=== PATIENT | female | born 1980 | race Caucasian/White ===

== ENCOUNTER 2020-07-18 18:30 | Emergency (ER) | payer OTHER ==
--- NOTE | 2020-07-18 19:23 | EDM.PDOC ---
ED HPI GENERAL MEDICAL PROBLEM - General Chief Complaint: Lower Extremity Injury/Pain Stated Complaint: RT LEG INJURY Time Seen by Provider: 07/18/20 19:06 - History of Present Illness INITIAL COMMENTS - FREE TEXT/NARRATIVE: HISTORY AND PHYSICAL: History of present illness: This is a 40-year-old female who presents ER today with complaint of sudden severe acute pain to her right posterior calf that felt like someone shot her in the back of her calf that occurred earlier today when she was taking a step down with weight on her right affected foot. Patient reports while she was stepping down she felt severe pain to the right calf. Patient reports 2 days ago she felt an ache to that area and today she felt a severe sharp snapping or bandlike pain. Patient reports severe pain with dorsiflexion of her foot. Patient rep orts that she works for [employer] and was having an extremely difficult time driving and had to use her left foot to drive. Patient has any hypertension, diabetes, liver, lung, kidney problems. Patient has any history of DVT/PE. Patient has any tobacco alcohol or drugs. Patient has no known drug allergies. Review of systems: As per history of present illness and below otherwise all systems reviewed and negative. Past medical history: As per history of present illness and as reviewed below otherwise noncontributory. Surgical history: As per history of present illness and as reviewed below otherwise noncontributory. Social history: No reported history of drug or alcohol abuse. Family history: As per history of present illness and as reviewed below otherwise noncontributory. Physical exam: Constitutional: Patient is oriented to person, place, and time. Appears well- developed and well-nourished. No distress. HEENT: Moist mucous membranes Head: Normocephalic and atraumatic Eyes: Right eye exhibits no discharge. Left eye exhibits no discharge. No scleral icterus Neck: Normal range of motion. No tracheal deviation present. Cardiovascular: Normal rate and regular rhythm. Pulmonary: Effort normal, no respiratory distress. Abdominal: No distention Musculoskeletal: Normal range of motion Neurologic: Alert and oriented to person, place and time. Skin: [place], warm and dry. Psychiatric: Normal mood and affect. Behavior is normal. Judgment and thought content normal. Nursing note and vital signs have been reviewed Patient's ER physical exam is significant for tenderness to palpation to her posterior calf. There is no edema identified but there is a slight amount of bruising noted to her posterior calf. Patient has severe pain with dorsiflexion and resolution of pain with plantarflexion of her right foot. Patient is neurovascular intact. Patient has good capillary refill and bounding DP/PT pulses. Assessment and plan: 40-year-old female with a likely tear of the calf muscle. Patient's exam and history is not consistent with a DVT. Patient exam and history is not consistent with an acute vascular occlusion. Patient be discharged home with ibuprofen, rest, ice, heat and instructions follow-up with orthopedics. Patient will be provided for crutches. DME note: Crutches are being ordered for patient to utilize secondary to likely calf muscl e tear. Patient should utilize the crutches for 1 week in order to avoid weightbearing and assist with calf muscle healing. Reassessment at the time of disposition demonstrates that the patient is in no acute distress. The patient has remained stable throughout the entire ED visit and is without objective evidence for acute process requiring urgent intervention or hospitalization. The patient is stable for discharge, counseling is provided as documented above, discussed symptomatic treatment and specific conditions for return. I have spoken with the patient/caregiver and discussed todays findings, in addition to providing specific details for the plan of care. Questions are answered and there is agreement with the plan. Definitive disposition and diagnosis as appropriate pending reevaluation and review of above. 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: Other CLINICAL OPERATIONS CONSULTANT History: tubal ligation - Past Surgical History Other HEENT Surgeries/Procedures: dental caries Female Surgical History: Reports: Hysterectomy Social & Family History - Family History Family Medical History: Noncontributory - Tobacco Use Tobacco Use Status *Q: Never Tobacco User - Recreational Drug Use Recreational Drug Use: No Review of Systems - Review of Systems Review Of Systems: See Below ED EXAM, GENERAL - Physical Exam Exam: See Below Course - Vital Signs Last Recorded V/S: Last Vital Signs Temp 97.5 F 07/18/20 18:50 Pulse 78 07/18/20 18:50 Resp 14 07/18/20 18:50 BP 140/93 H 07/18/20 18:50 Pulse Ox 97 07/18/20 18:50 - Orders/Labs/Meds Orders: Active Orders 24 hr Category Date Time Status DME for Discharge [COMM] Stat Oth 07/18/20 19:30 Ordered Departure - Departure Time of Disposition: 19:17 Disposition: Home, Self-Care 01 Clinical Impression: Gastrocnemius muscle tear - Discharge Information Prescriptions: Ibuprofen 600 mg PO Q6HR PRN #30 tablet PRN Reason: Pain Instructions: Medial Head Gastrocnemius Tear Rehab-SportsMed, Medial Head Gastrocnemius Tear Referrals: PCP,Not In Area [Primary Care Provider] - Forms: ED Department Discharge Additional Instructions: Your presentation in the ER today is consistent with a tear of your gastrocnemius muscle (calf muscle). What is a Calf Muscle Tear? How to Care for a Torn Calf Muscle Calf pain felt in your calf muscle belly is often the result of a pulled or torn calf muscle. A torn calf muscle can sometimes be confused with an Achilles tendon rupture, significant Achilles tendinopathy, leg cramps or even sciatica or referred pain from your lower back. Similar to the history of an Achilles tendon rupture, you may think you were hit in the leg. Potentially, you may feel a pop or snap. But in nearly 100% of cases, you will feel a sudden pain in the back of your calf. Over the next few hours, youll have difficulty walking properly or standing on your foot or rising onto your toes. Swelling or bruising in the calf muscle will be apparent in severe calf muscle tears. What Causes a Calf Muscle Tear? Calf muscle tears usually occur during acceleration or changes in direction, e.g. a change of running speed. However, there is a small percentage of the populations who can tear their calf muscle by merely walking. The most commonly torn calf muscle is your medial gastrocnemius. However, you can tear any of your other calf muscles: lateral gastrocnemius, soleus, plantaris or flexor hallucis longus. Mid-belly calf muscle tears are most familiar with the Achilles musculotendinous junction second most likely. [facility] Professional Building [address] [place] [address], [address] [place] [address] You should call her orthopedic clinic to make an appointment to see one of the orthopedic doctors for further evaluation if your symptoms persist. They will also help you with different exercises they can partake in to help increase the strength and healing of your muscles as well as prevent further injury in the future. You should apply ice for the first 48 hours. After 48 hours you can apply heat to increase blood circulation to the area. Over the next 24 to 48 hours you should expect the area to have slight increase in swelling and potentially some bruising in the back of your leg. The following information is given to patients seen in the emergency department who are being discharged to home. This information is to outline your options for follow-up care. We provide all patients seen in our emergency department with a follow-up referral. The need for follow-up, as well as the timing and circumstances, are variable depending upon the specifics of your emergency department visit. If you don't have a primary care physician on staff, we will provide you with a referral. We always advise you to contact your personal physician following an emergency department visit to inform them of the circumstance of the visit and for follow-up with them and/or the need for any referrals to a consulting specialist. The emergency department will also refer you to a specialist when appropriate. This referral assures that you have the opportunity for follow-up care with a specialist. All of these measure are taken in an effort to provide you with optimal care, which includes your follow-up. Under all circumstances we always encourage you to contact your private physician who remains a resource for coordinating your care. When calling for follow-up care, please make the office aware that this follow-up is from your recent emergency room visit. If for any reason you are refused follow-up, please contact the [facility] Emergency Department at and asked to speak to the emergency department charge nurse. Sepsis Event Note (ED) - Evaluation Sepsis Screening Result: No Definite Risk - Focused Exam Vital Signs: Vital Signs Temp Pulse Resp BP Pulse Ox 07/18/20 18:50 97.5 F 78 14 140/93 H 97 - My Orders Last 24 Hours: My Active Orders 07/18/20 19:30 DME for Discharge [COMM] Stat - Assessment/Plan Last 24 Hours: My Active Orders 07/18/20 19:30 DME for Discharge [COMM] Stat
[2020-07-18 19:38] VITALS: BP 139/94; PULSE 89
== END 2020-07-18 19:37 | disposition home or self-care (01) ==
LOC: MW.ED 18:30
DX: S86.111A Strain of other muscle(s) and tendon(s) of posterior muscle group at lower leg level, right leg, initial encounter (principal); X58.XXXA Exposure to other specified factors, initial encounter
CPT/HCPCS: 99282; 99283

== ENCOUNTER 2021-03-21 08:12 | Day surgery (SDC) | payer OTHER ==
[~2021-03-21 08:12] MED LIST: Lactated Ringers 1,000 ML IV SCH; Lidocaine 2% 5 ML SDV ONE; Ondansetron 4 MG/2 ML SDV ONE; fentaNYL 100 MCG/2 ML SDV ONE
[2021-03-21] MEDS ORDERED: Propofol 200 MG/20 ML SDV ONE ×2 (08:33)
[2021-03-21] MEDS ORDERED: Ondansetron 4 MG/2 ML SDV IVPUSH PRN (08:58)
[2021-03-21] MEDS ORDERED: Albuterol 0.083% 2.5 MG/3 ML Neb Soln NEB PRN (08:58)
--- NOTE | 2021-03-21 08:58 | PCM.PREANE ---
Preanesthetic Assessment - Anesthesia/Transfusion/Family Hx Anesthesia History: Prior Anesthesia Without Reaction Transfusion History: Prior Transfusion Without Reaction Other Type of Transfusion Reaction: pt has Anti-K antibody - Review of Systems General: No Symptoms Pulmonary: No Symptoms Cardiovascular: No Symptoms Gastrointestinal: No Symptoms Neurological: No Symptoms Other: Reports: None - Physical Assessment NPO Status Date: 03/21/21 NPO Status Time: 00:00 Height: 5 ft 3 in Weight: 197 lb ASA Class: 2 Mental Status: Alert & Oriented x3 Dentition: Reports: Normal Dentition ROM/Head Extension: Full Lungs: Clear to Auscultation, Normal Respiratory Effort Cardiovascular: Regular Rate, Regular Rhythm - Lab Values: Laboratory Last Values Urine HCG, Qual NEGATIVE (NEGATIVE) 03/21/21 08:25 - Allergies Allergies/Adverse Reactions: Allergies Allergy/AdvReac Type Severity Reaction Status Date / Time No Known Allergies Allergy Verified 07/18/20 18:53 - Acknowledgements Anesthesia Type Planned: General Anesthesia Pt an Appropriate Candidate for the Planned Anesthesia: Yes Alternatives and Risks of Anesthesia Discussed w Pt/Guardian: Yes Pt/Guardian Understands and Agrees with Anesthesia Plan: Yes PreAnesthesia Questionnaire - Past Health History Medical/Surgical History: Denies Medical/Surgical History HEENT History: Reports: Other (See Below) Other HEENT History: top denture Cardiovascular History: Reports: None Respiratory History: Reports: None Gastrointestinal History: Reports: GERD Genitourinary History: Reports: None 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 OB/BYN History: tubal ligation Musculoskeletal History: Reports: None Neurological History: Reports: None Psychiatric History: Reports: None Endocrine/Metabolic History: Reports: Obesity/BMI 30+ Hematologic History: Reports: Blood Transfusion(s) Other Hematologic History: Anti-K antibody Immunologic History: Reports: None Oncologic (Cancer) History: Reports: None Dermatologic History: Reports: None - Past Surgical History Other HEENT Surgeries/Procedures: dental caries Female Surgical History: Reports: Hysterectomy - SUBSTANCE USE Tobacco Use Status *Q: Former Tobacco User Tobacco Use Within Last Twelve Months: No - HOME MEDS Home Medications: Home Meds Pantoprazole Sodium [Protonix] 40 mg PO BID 03/15/21 [History] Phentermine HCl 37.5 mg PO DAILY 03/15/21 [History] Semaglutide [Ozempic] 0.5 mg SUBCUT WEEKLY 03/15/21 [History] - CURRENT (IN HOUSE) MEDS Current Meds: Current Medications Lactated Ringer's (Ringers, Lactated) 1,000 mls @ 125 mls/hr IV ASDIRECTED FIFI Discontinued Medications Fentanyl (Fentanyl 100 Mcg/2 Ml Sdv) Confirm Administered Dose 100 mcg .ROUTE .STK-MED ONE Stop: 03/21/21 07:18 Lidocaine (Lidocaine 2% 5 Ml Sdv) Confirm Administered Dose 5 ml .ROUTE .STK-MED ONE Stop: 03/21/21 07:18 Ondansetron HCl (Ondansetron 4 Mg/2 Ml Sdv) Confirm Administered Dose 4 mg .ROUTE .STK-MED ONE Stop: 03/21/21 07:18 Propofol (Propofol 200 Mg/20 Ml Sdv) Confirm Administered Dose 200 mg .ROUTE .STK-MED ONE Stop: 03/21/21 08:34 Propofol (Propofol 200 Mg/20 Ml Sdv) Confirm Administered Dose 200 mg .ROUTE .STK-MED ONE Stop: 03/21/21 08:34
--- NOTE | 2021-03-21 09:36 | PCM.POSTAN ---
POST ANESTHESIA ASSESSMENT - MENTAL STATUS Mental Status: Alert, Oriented - VITAL SIGNS Vital Signs: Last Vital Signs Temp 97.7 F 03/21/21 09:02 Pulse 91 03/21/21 09:02 Resp 16 03/21/21 09:02 BP 117/76 03/21/21 09:02 Pulse Ox 96 03/21/21 09:02 - RESPIRATORY Respiratory Status: Respiratory Rate WNL, Airway Patent, O2 Saturation Stable - CARDIOVASCULAR CV Status: Pulse Rate WNL, Blood Pressure Stable - GASTROINTESTINAL GI Status: No Symptoms - POST OP HYDRATION Hydration Status: Adequate & Stable
--- NOTE | 2021-03-21 09:36 | PCM48HPAN ---
Post Anesthesia Note - EVALUATION WITHIN 48HRS OF ANESTHETIC Vital Signs in Normal Range: Yes Patient Participated in Evaluation: Yes Respiratory Function Stable: Yes Airway Patent: Yes Cardiovascular Function Stable: Yes Hydration Status Stable: Yes Pain Control Satisfactory: Yes Nausea and Vomiting Control Satisfactory: Yes Mental Status Recovered: Yes Vital Signs: Last Vital Signs Temp 97.7 F 03/21/21 09:02 Pulse 91 03/21/21 09:02 Resp 16 03/21/21 09:02 BP 117/76 03/21/21 09:02 Pulse Ox 96 03/21/21 09:02
--- NOTE | 2021-03-21 10:09 | PCM.OPNOTE ---
- General Post-Op/Procedure Note Date of Surgery/Procedure: 03/21/21 Operative Procedure(s): egd w bx. colonoscopy w bx Findings: see see [id number] Pre Op Diagnosis: abd pain and bloating Post-Op Diagnosis: Same Anesthesia Technique: Moderate Sedation Primary Surgeon: Williams Zaldivar Pathology: egd bx colon random bx Complications: None Condition: Good
[2021-03-21 10:50] VITALS: BP 115/67; PULSE 65
--- NOTE | 2021-03-21 16:03 | OR ---
SURGEON: Williams Zaldivar MD DATE OF PROCEDURE: 03/21/2021 PREOPERATIVE DIAGNOSIS: Bloating and abdominal pain. POSTOPERATIVE DIAGNOSIS: Bloating and abdominal pain. PROCEDURES PERFORMED: 1. Esophagogastroduodenoscopy with biopsy. 2. Colonoscopy with biopsy. DESCRIPTION OF PROCEDURE: EGD: The patient was taken to the endoscopy room, and with the TRAVEL PHYSICAL THERAPIST, Diprivan was administered. A well-lubricated EGD scope was gently inserted through the oropharynx, down the esophagus, passing through the gastroesophageal junction, into the stomach. The mucosa was examined upon the passage. Any etiology will be noted. Once in the stomach, we continued to advance to the distal antrum, passed through the pylorus into the second portion of the duodenum. Again, the mucosa was examined for any abnormality and etiology. The scope was then retrieved back to the stomach and then retroflexed to look at the fundus of the stomach. If a biopsy was indicated, we will biopsy the antrum, body, and gastroesophageal junction. The air will be sucked out while the scope is retrieved to reduce the patient's discomfort. The patient tolerated the procedure well. There were no intraoperative complications. Dr. Zaldivar was present through the whole procedure. Prior to surgery, a time-out had been called, the patient identified, procedure identified and antibiotic administered. Colonoscopy with biopsy: The patient was taken to the endoscopy room. A time out was called, patient identified, and procedure identified. Diprivan was then administrated. Patient went from awake to sleep, hearing doctor talking or door closing is normal. Perineum inspection and digital examination were then performed. A well-lubricated colonoscope was gently inserted through the rectum, advanced past the rectosigmoid junction, the descending colon, splenic flexure, transverse colon, hepatic flexure, ascending colon, arrived to the cecum. Cecum was identified as dictated in the finding. Then the scope was carefully withdrawn while attention was paid to the mucosal surface for any abnormality. Air will be sucked out during the scope withdrawal. At the rectum, retroflexed to examine any rectal diseases, fistula or hemorrhoids. During mucosal examination, abnormality or polyp was noted; picture taken and biopsy performed. Patient tolerated procedure well. There were no intraoperative complications, and Dr. Zaldivar was present throughout the whole procedure. FINDINGS: EGD findings: 1. The patient is easily sedated with TRAVEL PHYSICAL THERAPIST and Diprivan. The patient is soundly snoring. 2. Oropharynx and proximal esophagus are free of disease. No stricture, inflammation, ulceration, or blood. Distal esophagus at GE junction at 40 shows mild salmon-colored change, suggests some mild acid reflux. Rugae are normal in appearance and antrum looks fine. Duodenum looks grossly normal. On retroflexed look at the fundus of stomach, there is no hiatal hernia. Biopsy done at antrum, body, GE junction at 40, and sucked out the gas while scope pulling out. Throughout the whole study, there is no food, bile, blood, or ulcer observed. Colonoscopy findings: 1. The patient is easily sedated with TRAVEL PHYSICAL THERAPIST and Diprivan. The patient is soundly snoring. 2. Bowel prep is average to good, very little liquid stool, no semi-formed stool, no stool ball. 3. Colon rather straightforward. Cecum indicated by ileocecal fold, one-to- one indentation, appendiceal orifice, and ScopeGuide is pointing south. Mucosa examined upon scope pulling out and the patient does not have diverticulosis, polyp, mass, growth, inflammation, stricture, AV malformation, ulcer, blood; none of those. Random biopsy done on colon for abdominal pain. The patient has mild internal hemorrhoids and mild external hemorrhoids. The patient would benefit from repeat colonoscopy in 10 years from today or if clinically indicated otherwise. COSME / MAR /[id number]
== END 2021-03-21 10:35 | disposition home or self-care (01) ==
LOC: MW.SDS 08:12
PROVIDERS: ATTEND Surgery
DX: R14.0 Abdominal distension (gaseous) (principal); R19.4 Change in bowel habit; K64.8 Other hemorrhoids; K64.4 Residual hemorrhoidal skin tags; E66.9 Obesity, unspecified; Z98.890 Other specified postprocedural states; Z87.891 Personal history of nicotine dependence; Z68.33 Body mass index [BMI] 33.0-33.9, adult
CPT/HCPCS: 43239; 45380; 81025; J2704; J3010; J7120; 00813; J2405

== ENCOUNTER 2021-03-23 06:31 | Day surgery (SDC) | payer OTHER ==
[~2021-03-23 06:31] MED LIST changes: -Lidocaine 2% 5 ML SDV ONE; -Ondansetron 4 MG/2 ML SDV ONE; +cefOXitin 2 GM in Premix Bag 1 BAG IV ONE; -fentaNYL 100 MCG/2 ML SDV ONE
[2021-03-23] MEDS ORDERED: propofoL 100 ML ONE (06:54)
[2021-03-23] MEDS ORDERED: fentaNYL 100 MCG/2 ML SDV ONE ×2 (06:55→09:34)
[2021-03-23] MEDS ORDERED: Morphine 10 MG/ML Syringe ONE (06:55)
[2021-03-23] MEDS ORDERED: Sugammadex Sodium 200 MG/2 ML VIAL ONE (06:56)
[2021-03-23] MEDS ORDERED: Rocuronium Bromide 50 MG/5 ML Syringe ONE ×2 (06:56→08:03)
[2021-03-23] MEDS ORDERED: Ondansetron 4 MG/2 ML SDV ONE ×2 (06:56)
[2021-03-23] MEDS ORDERED: Scopolamine 1.5 MG Transdermal Patch ONE (06:56)
[2021-03-23] MEDS ORDERED: Midazolam 1 MG/ML 2 ML SDV ONE (07:00)
[2021-03-23] MEDS ORDERED: Octyl 2-Cyanoacrylate 1 Tube ONE (07:12)
[2021-03-23] MEDS ORDERED: Bupivacaine 25%/EPINEPHrine/PF 30 ML ONE (07:12)
[2021-03-23] MEDS ORDERED: Ondansetron 4 MG/2 ML SDV IVPUSH PRN ×2 (07:18→09:34)
[2021-03-23] MEDS ORDERED: Naloxone 0.4 MG/ML Syringe IVPUSH PRN ×2 (07:18→09:34)
[2021-03-23] MEDS ORDERED: Albuterol 0.083% 2.5 MG/3 ML Neb Soln NEB PRN ×2 (07:18→09:34)
--- NOTE | 2021-03-23 07:20 | PCM.PREANE ---
Preanesthetic Assessment - Anesthesia/Transfusion/Family Hx Anesthesia History: Prior Anesthesia Without Reaction Transfusion History: Prior Transfusion Without Reaction Other Type of Transfusion Reaction: anti K antibody - Review of Systems General: No Symptoms Pulmonary: No Symptoms Cardiovascular: No Symptoms Gastrointestinal: No Symptoms Neurological: No Symptoms Other: Reports: None - Physical Assessment NPO Status Date: 03/23/21 NPO Status Time: 00:00 Vital Signs: Last Vital Signs Temp 97.9 F 03/23/21 06:49 Pulse 82 03/23/21 06:49 Resp 16 03/23/21 06:49 BP 128/76 03/23/21 06:49 Pulse Ox 96 03/23/21 06:49 Height: 5 ft 3 in Weight: 191 lb ASA Class: 2 Mental Status: Alert & Oriented x3 Airway Class: Mallampati = 2 Dentition: Reports: Normal Dentition ROM/Head Extension: Full Lungs: Clear to Auscultation, Normal Respiratory Effort Cardiovascular: Regular Rate, Regular Rhythm - Allergies Allergies/Adverse Reactions: Allergies Allergy/AdvReac Type Severity Reaction Status Date / Time No Known Allergies Allergy Verified 03/23/21 06:56 - Blood Blood Available: No - Anesthesia Plan Pre-Op Medication Ordered: Other (Scoploamine) - Acknowledgements Anesthesia Type Planned: General Anesthesia Pt an Appropriate Candidate for the Planned Anesthesia: Yes Alternatives and Risks of Anesthesia Discussed w Pt/Guardian: Yes Pt/Guardian Understands and Agrees with Anesthesia Plan: Yes PreAnesthesia Questionnaire - Past Health History Medical/Surgical History: Denies Medical/Surgical History HEENT History: Reports: Other (See Below) Other HEENT History: top denture Cardiovascular History: Reports: None Respiratory History: Reports: None Gastrointestinal History: Reports: GERD Genitourinary History: Reports: None 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 OB/BYN History: tubal ligation Musculoskeletal History: Reports: None Neurological History: Reports: None Psychiatric History: Reports: None Endocrine/Metabolic History: Reports: Obesity/BMI 30+ Hematologic History: Reports: Blood Transfusion(s) Other Hematologic History: Anti-K antibody Immunologic History: Reports: None Oncologic (Cancer) History: Reports: None Dermatologic History: Reports: None - Past Surgical History Head Surgeries/Procedures: Reports: None HEENT Surgical History: Reports: None Cardiovascular Surgical History: Reports: None Respiratory Surgical History: Reports: None GI Surgical History: Reports: Colonoscopy, EGD Other GI Surgeries/Procedures: EGD, colonoscopy on 03/21/21 Female Surgical History: Reports: Hysterectomy Other Female Surgeries/Procedures: cervical cerclage Endocrine Surgical History: Reports: None Neurological Surgical History: Reports: None Musculoskeletal Surgical History: Reports: None Oncologic Surgical History: Reports: None Dermatological Surgical History: Reports: None - SUBSTANCE USE Tobacco Use Status *Q: Former Tobacco User Tobacco Use Within Last Twelve Months: No - HOME MEDS Home Medications: Home Meds Pantoprazole Sodium [Protonix] 40 mg PO BID 03/15/21 [History] Phentermine HCl 37.5 mg PO DAILY 03/15/21 [History] Semaglutide [Ozempic] 0.5 mg SUBCUT WEEKLY 03/15/21 [History] - CURRENT (IN HOUSE) MEDS Current Meds: Current Medications Albuterol (Albuterol 0.083% 2.5 Mg/3 Ml Neb Soln) 2.5 mg NEB ONETIME PRN PRN Reason: Wheezing Lactated Ringer's (Ringers, Lactated) 1,000 mls @ 125 mls/hr IV ASDIRECTED [facility] Last Admin: 03/23/21 06:53 Dose: 125 mls/hr Documented by: Naloxone HCl (Naloxone 0.4 Mg/Ml Syringe) 0.1 mg IVPUSH ASDIRECTED PRN PRN Reason: Respiratory Depression Ondansetron HCl (Ondansetron 4 Mg/2 Ml Sdv) 4 mg IVPUSH ONETIME PRN PRN Reason: Nausea/Vomiting Discontinued Medications Fentanyl (Fentanyl 100 Mcg/2 Ml Sdv) Confirm Administered Dose 100 mcg .ROUTE .STK-MED ONE Stop: 03/23/21 06:56 Cefoxitin Sodium 2 gm/ Premix 50 mls @ 100 mls/hr IV ONETIME ONE Stop: 03/23/21 05:29 Acetaminophen (Ofirmev 1000 Mg/100 Ml) Confirm Administered Dose 100 mls @ as directed .ROUTE .STK-MED ONE Stop: 03/23/21 06:55 Propofol (Diprivan 100 Ml) Confirm Administered Dose 100 mls @ as directed .ROUTE .STK-MED ONE Stop: 03/23/21 06:55 Bupivacaine HCl/Epinephrine Bitart (Sensorc Mpf 0.25%-Epi [id number]) Confirm Administered Dose 30 mls @ as directed .ROUTE [place] ONE Stop: 03/23/21 07:13 Midazolam HCl (Midazolam 1 Mg/Ml 2 Ml Sdv) Confirm Administered Dose 2 mg .ROUTE [place]-MED ONE Stop: 03/23/21 07:01 Morphine Sulfate (Morphine 10 Mg/Ml Syringe) Confirm Administered Dose 10 mg .ROUTE [place]-MED ONE Stop: 03/23/21 06:56 Octyl Cyanoacrylate (Octyl 2-Cyanoacrylate 1 Tube) Confirm Administered Dose 1 applic .ROUTE [place]-MED ONE Stop: 03/23/21 07:13 Ondansetron HCl (Ondansetron 4 Mg/2 Ml Sdv) Confirm Administered Dose 4 mg .ROUTE [place]MED ONE Stop: 03/23/21 06:57 Ondansetron HCl (Ondansetron 4 Mg/2 Ml Sdv) Confirm Administered Dose 4 mg .ROUTE [place]MED ONE Stop: 03/23/21 06:57 Rocuronium Wells (Rocuronium Wells 50 Mg/5 Ml Syringe) Confirm Administered Dose 50 mg .ROUTE [place]-MED ONE Stop: 03/23/21 06:57 Scopolamine (Scopolamine 1.5 Mg Transdermal Patch) Confirm Administered Dose 1.5 mg .ROUTE [place]-MED ONE Stop: 03/23/21 06:57 Sugammadex Sodium (Sugammadex Sodium 200 Mg/2 Ml Vial) Confirm Administered Dose 200 mg .ROUTE [place]-MED ONE Stop: 03/23/21 06:57
[2021-03-23] MEDS ORDERED: Indocyanine Green 25 MG SDV ONE (07:31)
[2021-03-23] MEDS ORDERED: cefOXitin 1 GM Vial ONE (07:32)
[2021-03-23] MEDS ORDERED: Sodium Chloride 0.9% 20 ML ONE (07:33)
[2021-03-23] MEDS ORDERED: Dexamethasone 4 MG/ML 5 ML MDV ONE (07:59)
[2021-03-23] MEDS ORDERED: HYDROmorphone 2 MG/ML Syringe ONE (09:17)
--- NOTE | 2021-03-23 09:27 | PCM.POSTAN ---
POST ANESTHESIA ASSESSMENT - MENTAL STATUS Mental Status: Oriented, Somnolent - VITAL SIGNS Vital Signs: Last Vital Signs Temp 97.9 F 03/23/21 06:49 Pulse 82 03/23/21 06:49 Resp 16 03/23/21 06:49 BP 128/76 03/23/21 06:49 Pulse Ox 96 03/23/21 06:49 - RESPIRATORY Respiratory Status: Respiratory Rate WNL, Airway Patent, O2 Saturation Stable - CARDIOVASCULAR CV Status: Pulse Rate WNL, Blood Pressure Stable - GASTROINTESTINAL GI Status: No Symptoms - POST OP HYDRATION Hydration Status: Adequate & Stable
--- NOTE | 2021-03-23 09:29 | PCM.OPNOTE ---
- General Post-Op/Procedure Note Date of Surgery/Procedure: 03/23/21 Operative Procedure(s): lap gifty Findings: gb was distended and yellow and green cw chronic cholecystitis, a large gallstone noted; [id number] Pre Op Diagnosis: chronic cholecystitis Post-Op Diagnosis: Same Anesthesia Technique: General ET Tube Primary Surgeon: Williams Zaldivar Pathology: sent Complications: None Condition: Good Free Text/Narrative:: Intake & Output 03/22/21 03/23/21 03/23/21 22:59 06:59 14:59 Output Total 100 Balance -100
[2021-03-23] MEDS ORDERED: Acetaminophen/oxyCODONE 325-5 MG Tab PO PRN (09:31)
[2021-03-23] MEDS ORDERED: fentaNYL 100 MCG/2 ML SDV IVPUSH PRN (09:34)
[2021-03-23] MEDS ORDERED: Morphine 2 MG/ML SYRINGE IVPUSH PRN (09:34)
[2021-03-23] MEDS ORDERED: HYDROmorphone 2 MG/ML Syringe IVPUSH PRN (09:34)
[2021-03-23] MEDS ORDERED: Metoclopramide 10 MG/2 ML SDV IVPUSH PRN (09:34)
[2021-03-23] MEDS ORDERED: Acetaminophen 1,000 MG in Premix Bag 1 BAG IV PRN (09:34)
[2021-03-23] MEDS ORDERED: Metoclopramide 10 MG/2 ML SDV ONE (09:35)
[2021-03-23 10:18] VITALS: BP 94/51; PULSE 68
--- NOTE | 2021-03-23 15:04 | OR ---
SURGEON: Williams Zaldivar MD DATE OF PROCEDURE: 03/23/2021 PREOPERATIVE DIAGNOSIS: Chronic cholecystitis. POSTOPERATIVE DIAGNOSIS: Chronic cholecystitis. PROCEDURE PERFORMED: Laparoscopic cholecystectomy. PRIMARY SURGEON: Williams Zaldivar MD COMPLICATION: None. FINDINGS: Gallbladder was distended and yellow and green consistent with chronic cholecystitis, a large gallstone noted. PROCEDURE NOTE: The patient was taken to the operating room and placed in the supine position. After the intubation of general endotracheal anesthesia, the patient's abdomen was prepped and draped in the usual sterile fashion. Using Optiview, a 12 mm trocar was placed supraumbilically and then followed with pneumoperitoneum. A 5 mm trocar was placed in the epigastrium and two 5 mm trocars placed in the right upper quadrant. The placement of the last three trocars was done under direct video supervision. Upon gaining entrance to the abdominal cavity, an extensive examination was then performed. The gallbladder was located and identified and retracted to the dome of the liver at the triangle of Calot. The cystic duct was clipped three more times and then using the endoscopic clip, was transected with placement of the endoscopic clip and transection was performed with care, ensuring the posterior prong of the instruments were clearly visualized prior to exercising the procedure. The gallbladder was dissected using electrocautery out of the liver bed and then removed using endoscopic bag through the umbilical site. The gallbladder was removed en bloc and there was no bile spillage and this was then followed with extensive irrigation until the bile was clear from blood and bile. The trocars were then removed under direct video supervision. The 12 mm umbilical site was then closed with deep stitches using 0 Vicryl followed with proximal stitches using 3-0 Vicryl and Dermabond. The other three trocar sites were closed with 3-0 Vicryl followed with approximation of skin with Dermabond. The patient was then awakened and extubated and transferred to the recovery room in hemodynamically stable condition. At the conclusion of the surgery, before closing the abdominal wound, instrument count and sponge count were done and were correct. The patient tolerated the procedure well and there were no intraoperative complications. Dr. Zaldivar was present through the whole procedure. Just before surgery, a timeout was called. The patient was identified and procedure identified and procedure started. INTRAOPERATIVE FINDINGS: As dictated above. LIANS / MODL /[id number]
== END 2021-03-23 11:18 | disposition home or self-care (01) ==
LOC: MW.SDS 06:31
PROVIDERS: ATTEND Surgery
DX: K80.10 Calculus of gallbladder with chronic cholecystitis without obstruction (principal); Z79.899 Other long term (current) drug therapy; Z87.891 Personal history of nicotine dependence; E66.9 Obesity, unspecified; Z68.33 Body mass index [BMI] 33.0-33.9, adult
CPT/HCPCS: 47562; A9270; J0131; J0694; J1100; J2250; J2270; J2704; J2765; J3010; J3490; J7120; 00790; 88304; J1170; J2405

== ENCOUNTER 2022-08-16 21:25 | Emergency (ER) | payer OTHER ==
[2022-08-16 22:16] VITALS: BP 116/72; PULSE 72
== END 2022-08-16 22:15 | disposition home or self-care (01) ==
LOC: MW.ED 21:25
DX: S93.402A Sprain of unspecified ligament of left ankle, initial encounter (principal); E66.9 Obesity, unspecified; Z68.28 Body mass index [BMI] 28.0-28.9, adult; X50.1XXA Overexertion from prolonged static or awkward postures, initial encounter
CPT/HCPCS: 73610-26-LT; 73610-LT; 99283